=== PATIENT | female | born 1995 | race Caucasian/White ===

== ENCOUNTER → 2017-05-06 16:34 | Emergency (ER) | payer BC ==
[~2017-05-06 16:34] MED LIST: LORazepam INJ* 2 MG/ML 1 ML VIAL IV PUSH ONE; NS 0.9% 1000 ML* 1,000 ML IV ONE; Potassium Chlor TAB* 20 MEQ TAB.ER PO ONE
[2017-05-06 17:28] LABS: Hematocrit 41 % (35-47); Hemoglobin 13.8 g/dl (12.0-16.0); Mean Corpuscular HGB Conc 34 g/dl (31-36); Mean Corpuscular Hemoglobin 30 pg (27-31); Mean Corpuscular Volume 89 fL (80-97); Mean Platelet Volume 8 um3 (7.4-10.4); Red Blood Count 4.58 10^6/ul (4.0-5.4); Red Cell Distribution Width 12 % (10.5-15); White Blood Count 9.2 10^3/ul (3.5-10.8)
[2017-05-06 17:50] LABS: ALT 34 U/L (7-52); AST 19 U/L (13-39); Albumin 3.8 g/dL (3.2-5.2); Alkaline Phosphatase 69 U/L (34-104); Anion Gap 6 mmol/L (2-11); BUN/Creatinine Ratio 13.2 (8-20); Blood Urea Nitrogen 9 mg/dL (6-24); CO2 Carbon Dioxide 25 mmol/L (22-32); Calcium 8.5 mg/dL (8.6-10.3); Chloride 105 mmol/L (101-111); EGFR African American 140.5 (>60); EGFR Non-African American 109.2 (>60); Globulin 2.9 g/dL (2-4); Glucose 99 mg/dL (70-100); Potassium 3.4 mmol/L (3.5-5.0); Sodium 136 mmol/L (133-145); Total Protein 6.7 g/dL (6.4-8.9)
[2017-05-06 18:06] LABS: Acetaminophen < 15 mcg/mL; Alcohol < 10 mg/dL (<10); Salicylate < 2.50 mg/dL (<30)
[2017-05-06 18:20] LABS: Urine Bacteria Absent (Absent); Urine Bilirubin Negative (Negative); Urine Glucose Negative (Negative); Urine Nitrite Negative (Negative)
[2017-05-06 18:22] LABS: TSH (Thyroid Stimulating Horm) < 0.01 mcIU/mL (0.34-5.60)
[2017-05-06 18:31] LABS: Benzodiazepine Urine Screen None Detected (None Detect)
[2017-05-06 18:56] LABS: Benzodiazepine Urine Screen None Detected (None Detect)
--- NOTE | 2017-05-06 18:59 | RAD ---
INDICATION: Possible intracranial injury COMPARISON: None TECHNIQUE: Noncontrast axial source images were acquired from the skull base to the vertex. FINDINGS: Ventricles/sulci: The ventricles and cisterns are normal in size and configuration for age. Brain parenchyma: There is no focal parenchymal finding, evidence of intracranial mass, or intracranial mass effect. Intracranial hemorrhage:None. Extra-axial spaces: There are no abnormal extra axial fluid collections or evidence of extra-axial mass. Calvarium: There is no calvarial fracture or other calvarial abnormality. Scalp: There is no evidence of scalp or extracalvarial soft tissue abnormality. Paranasal sinuses/mastoid: The paranasal sinuses and mastoid air cells are clear. Other: None. IMPRESSION: NEGATIVE EXAMINATION
[2017-05-06 19:25] LABS: T4 15.16 mcg/mL (6.09-12.23)
[2017-05-06 19:32] LABS: Free T4 2.24 ng/dL (0.61-1.12)
[2017-05-06 19:57] VITALS: BP 130/86
--- NOTE | 2017-05-06 21:41 | ED ---
Russell Escobar Thomas, scribed for Shasha Gunter MD on 05/06/17 at 1719 . Psychiatric Complaint - HPI Summary HPI Summary: The patient is a 21 y/o female brought in by ambulance to the emergency room after she took Synthroid 175 mcg, Adderall 30 mg, and Sertraline 100 mg earlier today. She is anxious in the examination room. The patient reports feeling stressed due to school. She reports some sort of amnesia-like episode that occurred earlier today when she was at home. In the last few weeks, the patient has been depressed, lonely, and anxious because her sister overdosed. Today, the patient denies any suicidal ideation. PMHx includes hypothyroidism, depression, and anxiety. She is from [place] and her psychiatrist is in [place]. - History Of Current Complaint Chief Complaint: EDGeneral Time Seen by Provider: 05/06/17 16:46 Hx Obtained From: Patient Onset/Duration: Lasting Hours - earlier today, Still Present Timing: Constant Severity Currently: Moderate Character: Anxious Aggravating Factor(s): Recent Stress Alleviating Factor(s): Nothing Related History: Positive For: Prior Psychiatric Issues Has Suicidal: Denies: Thoughts Ingestion History: Type/Name Of Drug - See HPI - Allergies/Home Medications Allergies/Adverse Reactions: Allergies Allergy/AdvReac Type Severity Reaction Status Date / Time No Known Allergies Allergy Verified 05/06/17 16:51 Home Medications: Home Medications Amphetamine MIXED SALT TAB* [Adderall TAB*] 10 mg PO DAILY 05/06/17 [History Confirmed 05/06/17] Sertraline* [Zoloft*] 100 mg PO DAILY 05/06/17 [History Confirmed 05/06/17] PMH/Surg Hx/FS Hx/Imm Hx Previously Healthy: No Endocrine/Hematology History: Reports: Hx Thyroid Disease - hypothyroidism Denies: Hx Diabetes Cardiovascular History: Denies: Hx Hypertension, Hx Pacemaker/ICD History: Denies: Hx Renal Disease Sensory History: Denies: Hx Hearing Aid Psychiatric History: Reports: Hx Anxiety, Hx Depression Denies: Hx Panic Disorder Infectious Disease History: No Infectious Disease History: Denies: Traveled Outside the [place] in Last 30 Days - Social History Alcohol Use: Rare Substance Use Type: Reports: Prescribed, Other Substance Use Comment - Amount & Last Used: her mothers adderal, synthroid, clonazepam and zoloft Smoking Status (MU): Never Smoked Tobacco Review of Systems Negative: Fever Positive: Anxious, Depressed, Other - Stress, amnesia-like episode, lonely; NEGATIVE: SI All Other Systems Reviewed And Are Negative: Yes Physical Exam - Summary Physical Exam Summary: VITAL SIGNS: Reviewed. She is tachycaric. GENERAL: Patient is a well-developed and nourished female who is lying comfortable in the stretcher. Patient is not in any acute respiratory distress. HEAD AND FACE: No signs of trauma. No ecchymosis, hematomas or skull depressions. No sinus tenderness. EYES: PERRLA, EOMI x 2, No injected conjunctiva, no nystagmus. EARS: Hearing grossly intact. Ear canals and tympanic membranes are within normal limits. MOUTH: Oropharynx within normal limits. NECK: Supple, trachea is midline, no adenopathy, no JVD, no carotid bruit, no c- spine tenderness, neck with full ROM. CHEST: Symmetric, no tenderness at palpation LUNGS: Clear to auscultation bilaterally. No wheezing or crackles. CVS: She is sinus tachycardia on the monitor. S1 and S2 present, no murmurs or gallops appreciated. ABDOMEN: Soft, non-tender. No signs of distention. No rebound no guarding, and no masses palpated. Bowel sounds are normal. EXTREMITIES: FROM in all major joints, no edema, no cyanosis or clubbing. NEURO: Alert and oriented x 3. No acute neurological deficits. Speech is normal and follows commands. SKIN: Dry and warm PSYCHIATRIC: She is anxious. She is impulsive. She seems depressed. Triage Information Reviewed: Yes Vital Signs On Initial Exam: Initial Vitals Temp Pulse Resp BP Pulse Ox 98.7 F 139 18 113/86 100 05/06/17 16:44 05/06/17 16:44 05/06/17 16:44 05/06/17 16:44 05/06/17 16:44 Vital Signs Reviewed: Yes - Eddy Coma Scale Coma Scale Total: 15 Diagnostics - Vital Signs Vital Signs Temp Pulse Resp BP Pulse Ox 05/06/17 17:00 151 21 102/48 100 05/06/17 16:46 149 21 100 05/06/17 16:44 98.7 F 139 18 113/86 100 - Laboratory Result Diagrams: 05/06/17 17:15 05/06/17 17:15 Lab Statement: Any lab studies that have been ordered have been reviewed, and results considered in the medical decision making process. - CT CT Brain CT Interpretation: No Acute Changes - Negative examination. ED physician has reviewed this report and agrees. CT Interpretation Completed By: Radiologist Course/Dx - Course Assessment/Plan: The patient is a 21 y/o female brought in by ambulance to the emergency room after she took Synthroid 175 mcg, Adderall 30 mg, and Sertraline 100 mg earlier today. She is anxious in the examination room. The patient reports feeling stressed due to school. She reports some sort of amnesia-like episode that occurred earlier today when she was at home. In the last few weeks , the patient has been depressed, lonely, and anxious because her sister overdosed. Today, the patient denies any suicidal ideation. PMHx includes hypothyroidism, depression, and anxiety. She is from [place] and her psychiatrist is in [place]. In the ED course the patient was given IV fluids and Ativan. Bloodwork shows TSH 0.01, free T4 2.24, T4 15.16. Urinalysis was obtained. Urine toxicology positive for amphetamines and cannabinoids. The patient was medically cleared for mental health evaluation. She will be signed out to the next ED attending pending [facility], awaiting disposition. - Differential Dx/Clinical Impression Provider Diagnosis: Anxiety, Depression Discharge - Discharge Plan Condition: Stable Disposition: OTHER Discharge Disposition Comment: Signed out to the next ED attending, pending [facility] , awaiting disposition. Referrals: [facility] [Primary Care Provider] - The documentation as recorded by the Russell farley Thomas accurately reflects the service I personally performed and the decisions made by me, Shasha Gunter MD.
--- NOTE | 2017-05-06 23:10 | ED ---
Progress - Progress Note Progress Note: pt in no acute distress, understands dc plan from [facility], requests prescription for correct normal dose of synthroid 50 mcg daily. Agrees to and understnads dc instructions. - Consult/PCP Time Called: 00:00 Course/Dx - Diagnoses Provider Diagnoses: Depression, Anxiety, Medically-induced Hyperthyroidism
== END ==
LOC: ED 16:34
DX: F32.9 Major depressive disorder, single episode, unspecified (principal); F41.8 Other specified anxiety disorders
CPT/HCPCS: 36415; 70450; 80053; 80307; 80320; 80329; 81003; 81015; 84436; 84439; 84443; 84702; 85025; 96374; 99282; A9270-GY; G0480; J2060

== ENCOUNTER 2019-04-28 17:19 | Emergency (ER) | payer BC ==
[2019-04-28] MEDS ORDERED: hydrOXYzine HCL TAB* 25 MG PO ONE (19:32)
[2019-04-28 19:54] LABS: ABS Basophils 0.1 10^3/ul (0-0.2); ABS Eosinophils 0.4 10^3/ul (0-0.6); ABS Lymphocytes 2.4 10^3/ul (1.0-4.8); ABS Monocytes 0.7 10^3/ul (0-0.8); ABS Neutrophils 4.7 10^3/ul (1.5-7.7); Eosinophil % 4.5 %; Hematocrit 44 % (35-47); Hemoglobin 15.5 g/dL (12.0-16.0); Lymphocyte % 29.5 %; Mean Corpuscular HGB Conc 35 g/dL (31-36); Mean Corpuscular Hemoglobin 32 pg (27-31); Mean Corpuscular Volume 93 fL (80-97); Mean Platelet Volume 7.5 fL (7.4-10.4); Nucleated Red Blood Cells % 0.2; Platelet Count 371 10^3/uL (150-450); Red Blood Count 4.77 10^6 /uL (3.70-4.87); Red Cell Distribution Width 12 % (10-15); White Blood Count 8.2 10^3/uL (3.5-10.8)
[2019-04-28 20:02] LABS: Albumin 4.6 g/dL (3.2-5.2); Anion Gap 7 mmol/L (2-11); CO2 Carbon Dioxide 27 mmol/L (22-32); Calcium 9.8 mg/dL (8.6-10.3); Chloride 104 mmol/L (101-111); Potassium 3.8 mmol/L (3.5-5.0); Sodium 138 mmol/L (135-145)
[2019-04-28 20:08] LABS: ALT 11 U/L (7-52); AST 17 U/L (13-39); Albumin/Globulin Ratio 1.6 (1-3); Alkaline Phosphatase 67 U/L (34-104); BUN/Creatinine Ratio 15.9 (8-20); Blood Urea Nitrogen 14 mg/dL (6-24); EGFR African American 96.4 (>60); EGFR Non-African American 79.6 (>60); Globulin 2.9 g/dL (2-4); Glucose 78 mg/dL (70-100); Total Protein 7.5 g/dL (6.4-8.9)
[2019-04-28 20:13] LABS: Alcohol < 10 mg/dL (<10); Salicylate < 2.50 mg/dL (<30)
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
[2019-04-28 20:15] LABS: Acetaminophen < 15 mcg/mL
[2019-04-28 21:06] LABS: TSH (Thyroid Stimulating Horm) 2.39 mcIU/mL (0.34-5.60)
[2019-04-29 00:35] VITALS: BP 0/0
== END 2019-04-29 00:20 | disposition home or self-care (01) ==
LOC: ED 17:19
DX: F41.9 Anxiety disorder, unspecified (principal); E03.9 Hypothyroidism, unspecified; F17.200 Nicotine dependence, unspecified, uncomplicated
CPT/HCPCS: 36415; 80053; 80320; 80329; 84443; 84484; 85025; 85379; 93005; 99283; A9270-GY; G0480